=== PATIENT | female | born 1975 | race Hispanic/Latino ===

== ENCOUNTER 2018-03-21 13:57 | Emergency (ER) | payer SELFPAY ==
[2018-03-21 14:10] VITALS: TEMP 97.5
--- NOTE | 2018-03-21 14:24 | ED PDOC ---
HPI: Psych/Substance Abuse Time Seen by Provider: 03/21/18 14:15 Chief Complaint (Nursing): Substance Abuse Chief Complaint (Provider): Opiate abuse History Per: Patient, EMS History/Exam Limitations: no limitations Onset/Duration Of Symptoms: Days (today) Additional Complaint(s): Pt. found unresponsive in [facility] so EMS called. Pt. given 2 narcan does intranasal and woke up. Has been yelling since and when brought to the ER. Pt. denies drugs but admits etoh use. No pain, fall, or injury per pt. Not suicidal or homicidal. No weakness. No abd pain. Past Medical History Reviewed: Nursing Documentation, Vital Signs Vital Signs: Last Vital Signs Temp 97.5 F L 03/21/18 14:06 Pulse 113 H 03/21/18 14:06 Resp 16 03/21/18 14:06 BP 132/97 H 03/21/18 14:06 Pulse Ox 100 03/21/18 14:06 - Medical History PMH: No Chronic Diseases - Surgical History Surgical History: No Surg Hx - Family History Family History: States: Unknown Family Hx - Home Medications Home Medications: Ambulatory Orders Medication Instructions Recorded Unobtainable 03/21/18 - Allergies Allergies/Adverse Reactions: Allergies Allergy/AdvReac Type Severity Reaction Status Date / Time Unobtainable Allergy Verified 03/21/18 14:10 Review of Systems ROS Statement: Except As Marked, All Systems Reviewed And Found Negative Psych: Positive for: Psychosis (aggressive) Physical Exam - Reviewed Nursing Documentation Reviewed: Yes Vital Signs Reviewed: Yes - Physical Exam Appears: Positive for: Non-toxic, No Acute Distress Head Exam: Positive for: ATRAUMATIC, NORMAL INSPECTION, NORMOCEPHALIC Skin: Positive for: Normal Color, Warm, DRY Eye Exam: Positive for: EOMI, Normal appearance, PERRL ENT: Positive for: Normal ENT Inspection Neck: Positive for: Normal, Painless ROM Cardiovascular/Chest: Positive for: Regular Rate, Rhythm Respiratory: Positive for: CNT, Normal Breath Sounds Gastrointestinal/Abdominal: Positive for: Normal Exam, Soft. Negative for: Tenderness Back: Positive for: Normal Inspection. Negative for: L CVA Tenderness, R CVA Tenderness Extremity: Positive for: Normal ROM. Negative for: Tenderness, Pedal Edema Neurologic/Psych: Positive for: Alert, Oriented. Negative for: Motor/Sensory Deficits, Facial Droop - Laboratory Results Result Diagrams: 03/21/18 15:15 03/21/18 15:15 - ECG O2 Sat by Pulse Oximetry: 100 - Progress ED Course And Treament: 1425: Pt. with aggressive behavior. Is a threat to self and staff. Acute psychosis possibly from drugs and etoh. Will give ativan and possible restraints. 1850: Stable. Resting. Was given ativan. Dr. Amin to fu on sobriety and re -eval. Disposition - Clinical Impression Clinical Impression: Alcohol abuse, Opiate abuse, episodic - Patient ED Disposition Is Patient to be Admitted: Transfer of Care - Disposition Disposition: Transfer of Care Disposition Time: 18:52 Condition: FAIR Patient Signed Over To: Rudy Amin
[2018-03-21 15:23] LABS: BASO # 0.1 K/uL (0.0-0.2); BASO % 0.9 % (0.0-2.0); EOS # 0.1 K/uL (0.0-0.7); HEMOGLOBIN 13.4 g/dL (12.0-16.0); LYMPH % 24.4 % (20.0-40.0); MEAN CELL VOLUME 93.7 fl (81.0-99.0); MEAN CORPUSCULAR HEMOGLOBIN 31.4 pg (27.0-31.0); MEAN CORPUSCULAR HGB CONC 33.5 g/dL (33.0-37.0); MEAN PLATELET VOLUME 8.5 fl (7.2-11.7); MONO # 0.8 K/uL (0.0-0.8); MONO % 9.1 % (0.0-10.0); NEUT # 5.4 K/uL (1.8-7.0); NEUT % 64.6 % (50.0-75.0); RBC 4.26 Mil/uL (3.80-5.20); RED CELL DISTRIBUTION WIDTH 13.6 % (11.5-14.5); WHITE BLOOD COUNT 8.4 K/uL (4.8-10.8)
[2018-03-21 16:09] LABS: BLOOD UREA NITROGEN 7 mg/dl (7-17); CALCIUM 8.9 mg/dL (8.4-10.2); GFR AFRICAN-AMERICAN > 60; GFR NON-AFRICAN AMERICAN > 60
[2018-03-21 16:47] VITALS: RESP 18
[2018-03-21] MEDS ORDERED: Multivitamin (MVI) 10 ML, Folic Acid 1 MG, Thiamine 100 MG in Dextrose 5%/0.45% NS 1,00... IV ONE (17:23)
[2018-03-21 17:52] LABS: BARBITURATES, UR NEGATIVE (NEGATIVE); BENZODIAZEPINES, UR NEGATIVE (NEGATIVE); OPIATES, UR NEGATIVE (NEGATIVE); PHENCYCLIDINE, UR NEGATIVE (NEGATIVE)
--- NOTE | 2018-03-21 19:45 | ED PDOC ---
- Laboratory Results Result Diagrams: 03/21/18 15:15 03/21/18 15:15 - ECG O2 Sat by Pulse Oximetry: 100 Medical Decision Making Medical Decision Making: -- Patient signed to me by Dr. Whitney @1900, pending sobriety and re-eval. Time: 1958 -- Patient is awake, alert and oriented x3 with a steady gait, and fluid speech. Patient is stable for discharge with a diagnosis of alcohol abuse/ETOH intoxication. Scribe Attestation: Documented by Megan Pretty, acting as a scribe for Dr. Rudy Amin MD. Provider Scribe Attestation: All medical record entries made by the Scribe were at my direction and personally dictated by me. I have reviewed the chart and agree that the record accurately reflects my personal performance of the history, physical exam, medical decision making, and the department course for this patient. I have also personally directed, reviewed, and agree with the discharge instructions and disposition. Disposition - Clinical Impression Clinical Impression: Alcohol abuse - POA Present On Arrival: None - Disposition Disposition: Routine/Home Disposition Time: 20:00 Condition: IMPROVED Instructions: Effects of Alcohol on Your Health Forms: [employer] [facility] (Slovak)
[2018-03-21 20:01] VITALS: BP 123/85; PULSE 95
[2018-03-21 20:02] VITALS: O2SAT 100
== END 2018-03-21 20:13 | disposition home or self-care (01) ==
LOC: H.ER 13:57
DX: F11.10 Opioid abuse, uncomplicated (principal); F10.10 Alcohol abuse, uncomplicated
CPT/HCPCS: 80048; 81025; 85025; 96372; 99285; G0480; J2060; J3411; J7042